=== PATIENT | female | born 1985 | race Caucasian/White ===

== ENCOUNTER 2018-11-10 19:26 | Emergency (ER) | payer BC, OTHER ==
[2018-11-10] MEDS ORDERED: KETOROLAC 30 MG/ML 1 ML VIAL IVP STA (19:50)
--- NOTE | 2018-11-10 19:53 | ED ---
Chest Pain HPI - General Chief Complaint: Chest Pain Stated Complaint: Chest Pain Time Seen by Provider: 11/10/18 19:37 Source: patient, family, RN notes reviewed, old records reviewed Mode of arrival: ambulatory Limitations: no limitations - History of Present Illness Initial Comments: This is a 33-year-old female with no prior history she is aware of heart disease or lung disease who presents with complaints of acid left-sided chest pain that began around 2 PM he states it's tight pressure-like 6/10 severity increases when she standing upright she did have 2 episodes of nausea vomiting and some shortness of breath with it. She does state that she has any abnormal EKG and did have a stress test this past week which apparently was unremarkable. She denies any cough fevers chills sweats or other symptoms she states she is a smoker but she is in the process of trying to quit right now. She has of a family history of a first cousin with heart disease at the age 33. No other modifying factors at this time she denies any heavy lifting and pushing and pulling or strenuous activity. MD Complaint: chest pain - Related Data Home Medications Medication Instructions Recorded Confirmed PARoxetine HCL [Paxil] 10 mg PO DAILY@1500 08/08/18 11/10/18 Lisinopril [Zestril] 20 mg PO DAILY@1500 11/10/18 11/10/18 amLODIPine BESYLATE [Norvasc] 10 mg PO DAILY@1500 11/10/18 11/10/18 Previous Rx's Medication Instructions Recorded Ibuprofen 800 mg PO Q6HR PRN #20 tablet 11/10/18 Allergies Allergy/AdvReac Type Severity Reaction Status Date / Time egg Allergy Anaphylaxis Verified 11/10/18 19:51 tetracycline Allergy Dyspnea/Kraig Verified 11/10/18 19:51 sea Review of Systems ROS Statement: Those systems with pertinent positive or pertinent negative responses have been documented in the HPI. ROS Other: All systems not noted in ROS Statement are negative. EKG Findings - EKG Results: EKG: interpreted by COLT, sinus rhythm (Sinus rhythm rate 76. Interval 182 QRS duration 132 QT since QTC 412/463 nonspecific interventricular block this is compared with an EKG dated 08/08/18 showing very similar configuration.) Past Medical History Past Medical History: Hypertension Additional Past Medical History / Comment(s): Irritable bowel syndrome, brain aneurysms History of Any Multi-Drug Resistant Organisms: MRSA Date of last positivie culture/infection: 2010 MDRO Source:: throat Past Surgical History: Adenoidectomy, Cholecystectomy, Orthopedic Surgery, Tonsillectomy, Tubal Ligation Additional Past Surgical History / Comment(s): eisinophilic granuloma surgery repair x 2, lung biopsy Past Anesthesia/Blood Transfusion Reactions: No Reported Reaction Past Psychological History: Anxiety, Depression Smoking Status: Current every day smoker Past Alcohol Use History: None Reported Past Drug Use History: None Reported - Past Family History Mother History Unknown: Yes Family Medical History: Eye Disorder, Hypertension Father History Unknown: Yes Family Medical History: Cancer, Hypertension General Exam - General Exam Comments Initial Comments: This is a well-developed well-nourished awake alert oriented 3 female Limitations: no limitations General appearance: alert, anxious Head exam: Present: atraumatic, normocephalic, normal inspection Eye exam: Present: normal appearance, PERRL, EOMI. Absent: scleral icterus, conjunctival injection, periorbital swelling ENT exam: Present: normal exam, mucous membranes moist Neck exam: Present: normal inspection, tenderness (Tenderness palpation along the left lateral neck musculature no midline tenderness no spinous process tenderness), full ROM, other (No stridor JVD or bruits). Absent: meningismus, lymphadenopathy Respiratory exam: Present: normal lung sounds bilaterally, chest wall tenderness (Reproducible tenderness palpation on the left costal sternal costochondral margin no step-off or crepitation.). Absent: respiratory distress , wheezes, rales, rhonchi, stridor Cardiovascular Exam: Present: regular rate, normal rhythm, normal heart sounds. Absent: systolic murmur, diastolic murmur, rubs, gallop, clicks GI/Abdominal exam: Present: soft, normal bowel sounds. Absent: distended, tenderness, guarding, rebound, rigid, bruit, pulsatile mass Extremities exam: Present: normal inspection, full ROM, normal capillary refill. Absent: tenderness, pedal edema, joint swelling, calf tenderness Back exam: Present: normal inspection Neurological exam: Present: alert, oriented X3, CN II-XII intact Psychiatric exam: Present: normal affect, normal mood Skin exam: Present: warm, dry, intact, normal color. Absent: rash Course Vital Signs 11/10/18 11/10/18 11/10/18 19:30 19:48 20:26 Temperature 98.5 F Pulse Rate 83 Pulse Rate [ 100 Environmental Tech ] Respiratory 18 16 18 Rate Blood Pressure 130/85 O2 Sat by Pulse 100 Oximetry Chest Pain MDM - MDM Patient is feeling improved after IV Toradol I did a long discussion with her regarding findings he presentation consistent with costochondritis/ musculoskeletal pain. Patient be discharged on appropriate medication she is a follow-up with Dr. richardson. She is to continue smoking cessation. We also did discuss her hemoglobin low she states she's always had a high hemoglobin. Disposition Clinical Impression: Costalchondritis, Chest wall syndrome Disposition: HOME SELF-CARE Condition: Good Instructions (If sedation given, give patient instructions): Costochondritis ( ED) Prescriptions: Ibuprofen 800 mg PO Q6HR PRN #20 tablet PRN Reason: Pain Is patient prescribed a controlled substance at d/c from ED?: No Referrals: Edward Givens MD [Primary Care Provider] - 1-2 days
[2018-11-10 20:09] LABS: Basophils # (A) 0.1 k/uL (0-0.2); Basophils % (A) 1 %; Eosinophils # (A) 0.2 k/uL (0-0.7); Eosinophils % (A) 3 %; HCT 53.3 % (34.0-46.0); HGB 17.5 gm/dL (11.4-16.0); Lymphocytes # (A) 2.1 k/uL (1.0-4.8); Lymphocytes % (A) 24 %; MCH 31.7 pg (25.0-35.0); MCHC 32.9 g/dL (31.0-37.0); MCV 96.3 fL (80.0-100.0); Mean Platelet Volume 7.3; Monocytes # (A) 0.4 k/uL (0-1.0); Monocytes % (A) 5 %; Neutrophils # (A) 5.7 k/uL (1.3-7.7); Neutrophils % (A) 66 %; Platelet Count 188 k/uL (150-450); RBC 5.53 m/uL (3.80-5.40); RDW 13.5 % (11.5-15.5); WBC 8.6 k/uL (3.8-10.6)
--- NOTE | 2018-11-10 20:13 | XR ---
EXAMINATION TYPE: XR chest 2V DATE OF EXAM: 11/10/2018 COMPARISON: NONE HISTORY: Chest pain TECHNIQUE: Frontal and lateral views of the chest are obtained. FINDINGS: There is no heart failure nor confluent pneumonic infiltrate. Costophrenic angles are johanny r. There are chest leads. Bony thorax is intact. IMPRESSION: Normal chest
[2018-11-10 20:24] LABS: D-Dimer 0.18 mg/L FEU (<0.60); INR 0.9 (<1.2); Partial Thromboplastin Time 25.2 sec (22.0-30.0)
[2018-11-10 20:28] VITALS: RESP 18
[2018-11-10 20:32] LABS: ALT 22 U/L (9-52); AST 16 U/L (14-36); Albumin 4.2 g/dL (3.5-5.0); Alkaline Phosphatase 64 U/L (38-126); Amylase 66 U/L (30-110); Anion Gap 9 mmol/L; Blood Urea Nitrogen 14 mg/dL (7-17); Calcium 9.4 mg/dL (8.4-10.2); Carbon Dioxide 23 mmol/L (22-30); Chloride 107 mmol/L (98-107); Glucose 86 mg/dL (74-99); Lipase 223 U/L (23-300); Sodium 139 mmol/L (137-145); Total Bilirubin 0.6 mg/dL (0.2-1.3); Total Protein 7.3 g/dL (6.3-8.2)
[2018-11-10 21:27] VITALS: BP 148/80; PULSE 84; TEMP 98
== END 2018-11-10 21:20 | disposition home or self-care (01) ==
LOC: EC 19:26
DX: M94.0 Chondrocostal junction syndrome [Tietze] (principal); I10 Essential (primary) hypertension; F41.9 Anxiety disorder, unspecified; F32.9 Major depressive disorder, single episode, unspecified; F17.200 Nicotine dependence, unspecified, uncomplicated; Z79.899 Other long term (current) drug therapy; Z88.1 Allergy status to other antibiotic agents; Z91.012 Allergy to eggs
CPT/HCPCS: 36415; 93005; 85379; 83880; 80053; 82150; 83690; 83735; 84484; 85025; 85610; 85730; 71046; 99285; 96374; J1885

== ENCOUNTER 2019-11-13 11:23 | Observation (INO) | payer BC, OTHER ==
[2019-11-13 12:40] LABS: Basophils # (A) 0.1 k/uL (0-0.2); Basophils % (A) 1 %; Eosinophils # (A) 0.2 k/uL (0-0.7); Eosinophils % (A) 2 %; HCT 54.3 % (34.0-46.0); HGB 17.7 gm/dL (11.4-16.0); Lymphocytes # (A) 1.4 k/uL (1.0-4.8); Lymphocytes % (A) 19 %; MCHC 32.6 g/dL (31.0-37.0); MCV 95.1 fL (80.0-100.0); Mean Platelet Volume 8.2; Monocytes # (A) 0.3 k/uL (0-1.0); Monocytes % (A) 4 %; Neutrophils # (A) 5.2 k/uL (1.3-7.7); Neutrophils % (A) 72 %; Platelet Count 176 k/uL (150-450); RBC 5.72 m/uL (3.80-5.40); RDW 13.3 % (11.5-15.5); WBC 7.2 k/uL (3.8-10.6)
--- NOTE | 2019-11-13 12:48 | XR ---
EXAMINATION TYPE: XR chest 2V DATE OF EXAM: 11/13/2019 COMPARISON: 11/10/2018 HISTORY: Chest pain TECHNIQUE: Frontal and lateral views of the chest are obtained. FINDINGS: There is no focal air space opacity, pleural effusion, or pneumothorax seen. Nodular dens ities in the upper lungs are stable from 11/10/2018 and also near the first ribs, possible arthropathy. Cardiac silhouette size is within normal limits. The osseous structures are intact. Cholecystectom y clips are seen. IMPRESSION: No acute cardiopulmonary process. Stable upper lung nodular densities that are near the first ribs and could simply relate to arthropathy or costochondral calcifications. Nonemergent CT tho rax could ensure no lung nodules.
--- NOTE | 2019-11-13 12:50 | CT ---
EXAMINATION TYPE: CT brain wo con DATE OF EXAM: 11/13/2019 COMPARISON: 07/31/2018 HISTORY: Left-sided headache, eye pain, history of aneurysm CT DLP: 1099.4 mGycm. Automated Exposure Control for Dose Reduction was Utilized. TECHNIQUE: CT scan of the head is performed without contrast. FINDINGS: There is postsurgical change involving the left calvarium. There is no evidence of acute intracranial hemorrhage or mass effect. Ventricular size is stable. There is a linear area of hyperde nsity in the left frontal lobe which could represent a venous angioma. This is stable from prior exam . 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 CTA recom mended. Due to positioning assessment the cerebellar tonsils limited. Appears to be low-lying in posi tion. Report discussed with the ER clinician. IMPRESSION: 1. Postoperative changes. There appears to be findings suspicious for a 3 mm basilar tip artery aneur ysm. Stat CTA [place] recommended. 2. Findings also suspicious for venous angioma left frontal lobe. 3. Low-lying cerebellar tonsils
[2019-11-13 12:53] LABS: Partial Thromboplastin Time 25.6 sec (22.0-30.0); Prothrombin Time 10.5 sec (9.0-12.0)
[2019-11-13 12:54] LABS: ALT 6 U/L (4-34); AST 16 U/L (14-36); African American GFR (CKD) >90 (>60 ml/min/1.73 sqM); Albumin 4.2 g/dL (3.5-5.0); Alkaline Phosphatase 81 U/L (38-126); Anion Gap 9 mmol/L; Blood Urea Nitrogen 11 mg/dL (7-17); Calcium 9.2 mg/dL (8.4-10.2); Carbon Dioxide 25 mmol/L (22-30); Chloride 106 mmol/L (98-107); Glucose 87 mg/dL (74-99); Non-African American GFR(CKD) >90 (>60 ml/min/1.73 sqM); Sodium 140 mmol/L (137-145); Total Bilirubin 0.6 mg/dL (0.2-1.3); Total Protein 7.2 g/dL (6.3-8.2)
--- NOTE | 2019-11-13 12:54 | ED ---
General Adult HPI - General Chief complaint: Chest Pain Stated complaint: chest tightness/facial numbness Time Seen by Provider: 11/13/19 12:06 Source: patient, RN notes reviewed Mode of arrival: wheelchair Limitations: no limitations - History of Present Illness Initial comments: This a 34 year female presents emergency Department chief complaint of headache, chest discomfort. Patient states she did not feel well at work last night states that she had some skipping of her heart or palpitations. Patient states then she developed left eye issues that she describes as flashing lights and then states that he went completely black for several minutes. She states her vision still feels weak but she does have active vision out of her left eye. She states that she has some issues with this after her aneurysm procedure done at [facility]. She states that she follow-up with ophthalmology at that time and she was told she had some narrowing of her vessel. Patient does not take Plavix as she used to after her aneurysm procedure. Patient denies any focal weakness of her upper or lower extremities. She does complain of some facial numbness on the left side. She states that she has a current headache and left foot is not the worse headache of her life. - Related Data Home Medications Medication Instructions Recorded Confirmed PARoxetine HCL [Paxil] 10 mg PO DAILY@1500 08/08/18 11/10/18 Lisinopril [Zestril] 20 mg PO DAILY@1500 11/10/18 11/10/18 amLODIPine BESYLATE [Norvasc] 10 mg PO DAILY@1500 11/10/18 11/10/18 Previous Rx's Medication Instructions Recorded Ibuprofen 800 mg PO Q6HR PRN #20 tablet 11/10/18 Allergies Allergy/AdvReac Type Severity Reaction Status Date / Time egg Allergy Anaphylaxis Verified 11/13/19 11:31 tetracycline Allergy Dyspnea/Kraig Verified 11/13/19 11:31 sea Review of Systems ROS Statement: Those systems with pertinent positive or pertinent negative responses have been documented in the HPI. ROS Other: All systems not noted in ROS Statement are negative. Past Medical History Past Medical History: Hypertension Additional Past Medical History / Comment(s): Irritable bowel syndrome, brain aneurysms History of Any Multi-Drug Resistant Organisms: MRSA Date of last positivie culture/infection: 2010 MDRO Source:: throat Past Surgical History: Adenoidectomy, Cholecystectomy, Orthopedic Surgery, Tonsillectomy, Tubal Ligation Additional Past Surgical History / Comment(s): eisinophilic granuloma surgery repair x 2, lung biopsy Past Anesthesia/Blood Transfusion Reactions: No Reported Reaction Past Psychological History: Anxiety, Depression Smoking Status: Current every day smoker Past Alcohol Use History: None Reported Past Drug Use History: None Reported - Past Family History Mother History Unknown: Yes Family Medical History: Eye Disorder, Hypertension Father History Unknown: Yes Family Medical History: Cancer, Hypertension General Exam Limitations: no limitations General appearance: alert, in no apparent distress Head exam: Present: atraumatic, normocephalic, normal inspection Eye exam: Present: normal appearance, PERRL, EOMI. Absent: scleral icterus, conjunctival injection, periorbital swelling ENT exam: Present: normal exam, normal oropharynx, mucous membranes moist Neck exam: Present: normal inspection, full ROM. Absent: tenderness, meningismus, lymphadenopathy Respiratory exam: Present: normal lung sounds bilaterally. Absent: respiratory distress, wheezes, rales, rhonchi, stridor Cardiovascular Exam: Present: regular rate, normal rhythm, normal heart sounds. Absent: systolic murmur, diastolic murmur, rubs, gallop, clicks GI/Abdominal exam: Present: soft, normal bowel sounds. Absent: distended, tenderness, guarding, rebound, rigid Neurological exam: Present: alert, oriented X3, CN II-XII intact, reflexes normal. Absent: motor sensory deficit Skin exam: Present: warm, dry, intact, normal color. Absent: rash Course Vital Signs 11/13/19 11/13/19 11/13/19 11:27 11:50 12:00 Temperature 97.9 F Pulse Rate 66 78 79 Respiratory 16 20 21 Rate Blood Pressure 138/92 130/79 O2 Sat by Pulse 98 99 98 Oximetry 11/13/19 11/13/19 11/13/19 12:20 12:30 13:40 Temperature Pulse Rate 79 79 Respiratory 20 17 Rate Blood Pressure 129/86 129/86 123/77 O2 Sat by Pulse 98 96 Oximetry EKG Findings - EKG Comments: EKG Findings:: EKG formal 12:20 normal sinus rhythm rate of 80 [place] 174 QRS 2018 QTC is QTC 44/465 - EKG Results: EKG: interpreted by COLT Medical Decision Making - Medical Decision Making 34-year-old female presented for chest pain, headache and episode of blurred vision. Her symptoms of her vision have resolved this time. I did have a CT of her brain which showed possibility of aneurysm CTA was obtained radiologist read as negative at this time. Patient continues to have chest discomfort there is some family history and she states she has risk factors. I did have a dis cussion with her stating that she need to be transferred to her neurosurgeon at [facility] in [place]. Patient states that she is not worried about her headache, facial symptoms or blurred vision. She states she's had these symptoms in the past. She states she has an appointment with her neurologist on the . Patient refuses to be transferred to [facility] for neuro evaluation. I do have concerns of cardiac disease. I did recommend the patient should have observation at [facility] also for chest pain. Patient again declines. Case discussed with Dr. Rose in which the patient may be admitted for cardiology evaluation knowing that we do not have current neuro evaluation. - Lab Data Result diagrams: 11/13/19 12:00 11/13/19 12:00 Lab Results 11/13/19 11/13/19 11/13/19 Range/Units 12:00 12:00 12:00 WBC 7.2 (3.8-10.6) k/uL RBC 5.72 H (3.80-5.40) m/uL Hgb 17.7 H (11.4-16.0) gm/dL Hct 54.3 H (34.0-46.0) % MCV 95.1 (80.0-100.0) fL MCH 31.0 (25.0-35.0) pg MCHC 32.6 (31.0-37.0) g/dL RDW 13.3 (11.5-15.5) % Plt Count 176 (150-450) k/uL Neutrophils % 72 % Lymphocytes % 19 % Monocytes % 4 % Eosinophils % 2 % Basophils % 1 % Neutrophils # 5.2 (1.3-7.7) k/uL Lymphocytes # 1.4 (1.0-4.8) k/uL Monocytes # 0.3 (0-1.0) k/uL Eosinophils # 0.2 (0-0.7) k/uL Basophils # 0.1 (0-0.2) k/uL PT 10.5 (9.0-12.0) sec INR 1.0 (<1.2) APTT 25.6 (22.0-30.0) sec Sodium 140 (137-145) mmol/L Potassium 4.0 (3.5-5.1) mmol/L Chloride 106 (98-107) mmol/L Carbon Dioxide 25 (22-30) mmol/L Anion Gap 9 mmol/L BUN 11 (7-17) mg/dL Creatinine 0.68 (0.52-1.04) mg/dL Est GFR (CKD-EPI)AfAm >90 (>60 ml/min/1.73 sqM) Est GFR (CKD-EPI)NonAf >90 (>60 ml/min/1.73 sqM) Glucose 87 (74-99) mg/dL Calcium 9.2 (8.4-10.2) mg/dL Magnesium 2.0 (1.6-2.3) mg/dL Total Bilirubin 0.6 (0.2-1.3) mg/dL AST 16 (14-36) U/L ALT 6 (4-34) U/L Alkaline Phosphatase 81 (38-126) U/L Troponin I (0.000-0.034) ng/mL NT-Pro-B Natriuret Pep pg/mL Total Protein 7.2 (6.3-8.2) g/dL Albumin 4.2 (3.5-5.0) g/dL 11/13/19 11/13/19 Range/Units 12:00 12:00 WBC (3.8-10.6) k/uL RBC (3.80-5.40) m/uL Hgb (11.4-16.0) gm/dL Hct (34.0-46.0) % MCV (80.0-100.0) fL MCH (25.0-35.0) pg MCHC (31.0-37.0) g/dL RDW (11.5-15.5) % Plt Count (150-450) k/uL Neutrophils % % Lymphocytes % % Monocytes % % Eosinophils % % Basophils % % Neutrophils # (1.3-7.7) k/uL Lymphocytes # (1.0-4.8) k/uL Monocytes # (0-1.0) k/uL Eosinophils # (0-0.7) k/uL Basophils # (0-0.2) k/uL PT (9.0-12.0) sec INR (<1.2) APTT (22.0-30.0) sec Sodium (137-145) mmol/L Potassium (3.5-5.1) mmol/L Chloride (98-107) mmol/L Carbon Dioxide (22-30) mmol/L Anion Gap mmol/L BUN (7-17) mg/dL Creatinine (0.52-1.04) mg/dL Est GFR (CKD-EPI)AfAm (>60 ml/min/1.73 sqM) Est GFR (CKD-EPI)NonAf (>60 ml/min/1.73 sqM) Glucose (74-99) mg/dL Calcium (8.4-10.2) mg/dL Magnesium (1.6-2.3) mg/dL Total Bilirubin (0.2-1.3) mg/dL AST (14-36) U/L ALT (4-34) U/L Alkaline Phosphatase (38-126) U/L Troponin I <0.012 (0.000-0.034) ng/mL NT-Pro-B Natriuret Pep 56 pg/mL Total Protein (6.3-8.2) g/dL Albumin (3.5-5.0) g/dL Disposition Clinical Impression: Left facial numbness, Ocular pain, left eye, Chest pain Disposition[facility] Condition: Fair Referrals: Edward Givens MD [Primary Care Provider] - 1-2 days
--- NOTE | 2019-11-13 13:49 | CT ---
EXAMINATION TYPE: CT angio head DATE OF EXAM: 11/13/2019 1:24 PM COMPARISON: CT brain earlier today. MRA [place] August 09, 2018 HISTORY: Prior history of aneurysm. Abnormal CT today. CT DLP: 970.2 mGycm Automated exposure control for dose reduction was used. TECHNIQUE: Performed with IV Contrast, patient injected with 100 mL of Isovue 370. . FINDINGS: Larger dominant right vertebral artery redemonstrated. Vertebral arteries are patent to the basilar j unction. No significant focal stenosis or aneurysmal change is present. There is tortuous course to t he left T1 segment mimicking basilar tip aneurysm and high originating superior cerebellar arteries w hen correlating CTA with prior MRI causing some prominence of the basilar tip. Anterior circulation shows patent anterior communicating artery. There is no significant focal stenos is or aneurysmal change seen. IMPRESSION: No aneurysmal change at the level [place] with particular attention to the basil ar tip. No significant change from MRA August 09, 2018.
[2019-11-13] MEDS ORDERED: ASPIRIN 81 MG PO STA (14:37)
[2019-11-13] MEDS ORDERED: HEPARIN SODIUM,PORCINE 5,000 UNIT/ML 1 ML VIAL IV PRN (14:37)
[2019-11-13] MEDS ORDERED: HEPARIN SODIUM,PORCINE 5,000 UNIT/ML 1 ML VIAL IV ONE (14:37)
[2019-11-13] MEDS ORDERED: NITROGLYCERIN SL TABS 0.4 MG TAB SUBLINGUAL PRN (14:37)
[2019-11-13] MEDS ORDERED: HEPARIN SOD,PORK IN 0.45% NACL 25,000 UNIT in 0.45% NACL 1 250ML.BAG IV SCH (14:45)
[2019-11-13] MEDS ORDERED: LISINOPRIL 20 MG TAB PO SCH (15:00)
[2019-11-13] MEDS ORDERED: amLODIPine 10 MG TAB PO SCH (15:00)
[2019-11-13] MEDS ORDERED: PARoxetine 10 MG TAB PO SCH (15:00)
[2019-11-13] MEDS: NITROGLYCERIN OINT 1 INCH/GM PACKET TOPICAL SCH ×2 (16:52→23:01)
[2019-11-13] MEDS: NICOTINE 14MG/24HR PATCH TRANSDERM SCH (16:53)
[2019-11-13 21:18] VITALS: RESP 18
--- NOTE | 2019-11-13 22:12 | P.HPIM ---
History of Present Illness H&P Date: 11/13/19 Chief Complaint: Chest tightness History of presenting complaint: His is a pleasant [address] Givens. 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 Also Found a Venous Angioma of the Left Frontal Lobe. Patient Was Transferred to [facility]. Subsequently Abdominal the [facility] She Had a Stent Placed in the Brain. Patient Cannot Give Me M ore Details. Patient Now Presents Lasted of Chest Tightness across the Chest. Also Fluttering Sensation. Worse with Activity Better with Rest. No Cough No Fever or Chills. No Radiation to Neck or Arm. Admitted for the Same. Patient Was Told in the ER That No Neurology Service Available. Patient Understands the Same and Wants to Get Admitted Here. Did Not Wish to Be Transferred to Another Hospital. Patient Also Described Flashing Lights and Completely Blind for Several Minutes. And Vision Improved to His Left Eye. Some Left-Sided Headache. 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 EYES: Pupils equal. Conjunctiva normal. HEENT: External appearance of nose and ears normal, oral cavity grossly normal. NECK: JVD not raised; masses not palpable. HEART: First and second heart sounds are normal; no edema. LUNGS:[ Respiratory rate normal; diminished breath sounds mild wheezing. ABDOMEN: Soft, nontender, liver spleen not palpable, no masses palpable. PSYCH: Alert and oriented x3; mood and affect anxiousl. NEUROLOGICAL: Cranial nerves grossly intact; no facial asymmetry, power and sensation grossly intact. LYMPHATICS: No lymph nodes palpable in the axilla and neck INVESTIGATIONS, reviewed in the clinical context: White count 7.2 hemoglobin 7.7 potassium 4 creatinine 0.68 Troponin I 2 negative Computed tomography scan of the brain-finding suspicious for a 3 mm basilar tip artery aneurysms and suspicion for venous angioma left frontal lobe Carotid Doppler-unremarkable CT angiogram of the head-acute none EKG tracing personally reviewed by me-normal sinus rhythm poor R-wave progression Chest x-ray film personally reviewed by me-some pulmonary artery prominence Assessment: -Chest tightness-rule out cardiac cause -Temporary loss of vision in the left eye, with vision recovered with some headache. Patient does not wish to be transferred to [facility] and was told by the ER physician and patient does understand is no neurology service available here. 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 Serial cardiac enzymes and place. Home medications resumed. Nicotine patch to be given. Discussed with patient. Patient is offered transfer to [facility] for ophthalmic symptoms Past Medical History Past Medical History: Hypertension Additional Past Medical History / Comment(s): Eisinophilic granuloma/brain with surgery, 2018 aneurysm distal L internal caratid artery and a large L aneurysm opthalmic artery with surgery, chronic headaches, L eye has narrowed vessel, past L eye twitching/pain, L side facial numbness, leaky heart valve, hiatal hernia, IBS. History of Any Multi-Drug Resistant Organisms: MRSA Date of last positivie culture/infection: 2010 MDRO Source:: throat Past Surgical History: Adenoidectomy, Cholecystectomy, Orthopedic Surgery, Tonsillectomy, Tubal Ligation Additional Past Surgical History / Comment(s): Benign eisinophilic granuloma skull surgery repair then I&D of this area, 2018-2 brain aneurysms with surgery at [facility], R lung biopsy d/t "spots"-found to be fungal, L knee arthroscopy. Past Anesthesia/Blood Transfusion Reactions: No Reported Reaction Past Psychological History: Anxiety, Depression Additional Psychological History / Comment(s): Pt resides with her significant other and 4 boys-one of which has autism. Pt works facility rehab director. She is independent. Smoking Status: Former smoker Past Alcohol Use History: None Reported Additional Past Alcohol Use History / Comment(s): Pt started smoking in 1999 and quit in 2017. Past Drug Use History: None Reported - Past Family History Mother History Unknown: Yes Family Medical History: Eye Disorder, Hypertension Father History Unknown: Yes Family Medical History: Cancer, Hypertension, Renal Disease Additional Family Medical History / Comment(s): Father had cancerous brain eisinophilic granuloma. He from renal failure d/t medications at the age of 50 yrs. Medications and Allergies Home Medications Medication Instructions Recorded Confirmed Type PARoxetine HCL [Paxil] 10 mg PO DAILY@169908/08/18 11/13/19 History Lisinopril [Zestril] 20 mg PO DAILY@169911/10/18 11/13/19 History amLODIPine BESYLATE [Norvasc] 10 mg PO DAILY@169911/10/18 11/13/19 History Aspirin 325 mg PO DAILY@169911/13/19 11/13/19 History Allergies Allergy/AdvReac Type Severity Reaction Status Date / Time egg Allergy Anaphylaxis Verified 11/13/19 14:40 sumatriptan [From Imitrex] Allergy Unknown Verified 11/13/19 14:40 tetracycline Allergy Dyspnea/Kraig Verified 11/13/19 14:40 sea Physical Exam Vitals: Vital Signs Temp Pulse Pulse Resp BP BP Pulse Ox 11/13/19 20:00 97.8 F 86 18 118/65 95 11/13/19 15:47 98.4 F 76 16 129/86 97 11/13/19 13:40 79 17 123/77 96 11/13/19 12:30 129/86 11/13/19 12:20 79 20 129/86 98 11/13/19 12:00 79 21 130/79 98 11/13/19 11:50 78 20 99 11/13/19 11:27 97.9 F 66 16 138/92 98 Intake and Output 11/13/19 11/13/19 11/13/19 06:59 14:59 22:59 Other: Voiding Method Toilet Weight 90.718 kg 90.718 kg Results CBC & Chem 7: 11/13/19 12:00 11/13/19 12:00 Labs: Abnormal Lab Results - Last 24 Hours (Table) 11/13/19 Range/Units 12:00 RBC 5.72 H (3.80-5.40) m/uL Hgb 17.7 H (11.4-16.0) gm/dL Hct 54.3 H (34.0-46.0) % Thrombosis Risk Factor Assmnt - Choose All That Apply Any of the Below Risk Factors Present?: Yes Each Factor Represents 1 point: Obesity (BMI >25) Other Risk Factors: No Other congenital or acquired thrombophilia - If yes, enter type in comment: No Thrombosis Risk Factor Assessment Total Risk Factor Score: 1 Thrombosis Risk Factor Assessment Level: Low Risk
[2019-11-14 03:26] LABS: Mean Platelet Volume 8.4; Platelet Count 185 k/uL (150-450)
[2019-11-14] MEDS: NITROGLYCERIN OINT 1 INCH/GM PACKET TOPICAL SCH ×2 (03:41→12:42)
[2019-11-14 03:43] LABS: Cholesterol 142 mg/dL (<200); HDL Cholesterol 44 mg/dL (40-60); LDL Cholesterol,Calculated 83 mg/dL (0-99); Triglycerides 77 mg/dL (<150)
[2019-11-14] MEDS: NICOTINE 14MG/24HR PATCH TRANSDERM SCH ×2 (08:22→12:42)
[2019-11-14] MEDS ORDERED: ASPIRIN 81 MG PO SCH (09:00)
[2019-11-14] MEDS ORDERED: ASPIRIN 325 MG TAB PO SCH (09:00)
--- NOTE | 2019-11-14 10:32 | P.CRDCN ---
History of Present Illness History of present illness: HISTORY OF PRESENTING ILLNESS This is a pleasant 34-year-old female past medical history significant for hypertension, eosinophilic granuloma s/p craniotomy at the age of 16, aneur ysm behind the left eye status post repair with stent placement in the brain exact details unavailable, chronic nicotine dependence and morbid obesity. 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 We have been asked to see in consultation for chest pain. She states for the previous 24 hours she has been experiencing a tightness in the left precordial region at times radiates into the left neck, left shoulder and is associated with shortness of breath and palpitations. Her pain is exacerbated by deep inspiration. It is not reproducible on palpation. She also has been experiencing some vision loss and changes in the left side. This has subsided however her chest pain has been intermittently ongoing. DIAGNOSTICS EKG reveals sinus mechanism with poor R-wave progression. Chest xray to for an acute cardiopulmonary process with a stable upper lung nodule density. CT brain reveals postoperative changes with a suspicion for a 3 mm basal tip artery aneurysm, venous angioma of the left frontal lobe and a low lying cerebellar tonsils. CTA of the head reveals no aneurysmal change at the level of the [place] with particular attention to the basilar tip no change from MRA from July 2018. Laboratory reviewed, cardiac enzymes negative 3, LDL 83, HDL 44, WBC 7.2, hemoglobin 17.7, platelets 195, sodium 140, potassium 4.0, creatinine 0.68 and anti-proBNP 56. Current cardiac medications include aspirin 325 mg daily per neurology, lisinopril 20 mg daily and amlodipine 10 mg daily. REVIEW OF SYSTEMS At the time of my exam: CONSTITUTIONAL: Denies fever or chills. CARDIOVASCULAR: Denies chest pain, shortness of breath, orthopnea, PND or palpitations. RESPIRATORY: Denies cough. GASTROINTESTINAL: Denies abdominal pain, diarrhea, constipation, nausea or vomiting. MUSCULOSKELETAL: Denies myalgias. NEUROLOGIC: Denies numbness, tingling or weakness. ENDOCRINE: Denies fatigue, weight change, polydipsia or polyurina. GENITOURINARY: Denies burning, hematuria or urgency with micturation. HEMATOLOGIC: Denies history of anemia or bleeding. PHYSICAL EXAMINATION Blood pressure 111/75 heart rate 75 afebrile and maintaining oxygen saturation on room air. CONSTITUTIONAL: No apparent distress. HEENT: Head is normocephalic. Pupils are equal, round. Sclerae anicteric. Mucous membranes of the mouth are moist. No JVD. No carotid bruit. CHEST EXAMINATION: Lungs are clear to auscultation. No chest wall tenderness is noted on palpation or with deep breathing. HEART EXAMINATION: Regular rate and rhythm. S1, S2 heard. No murmurs, gallops or rub. ABDOMEN: Soft, nontender. Positive bowel sounds. EXTREMITIES: 2+ peripheral pulses, no lower extremity edema and no calf tenderness. NEUROLOGIC EXAMINATION: Patient is awake, alert and oriented x3. ASSESSMENT Chest pain, atypical. An acute coronary event has been ruled out. Vision changes Hypertension Polycythemia Chronic nicotine dependence History of aneurysm behind the left eye status post surgical repair Morbid obesity, BMI 43 PLAN An acute coronary event has been ruled out. Discontinue heparin. Check a d-dimer. Perform stress echocardiogram to assess for stress induced ischemia. Consider neurology evaluation for vision loss, management per primary care team. Thank you kindly for this consultation. Nurse Practitioner note has been reviewed, I agree with a documented findings and plan of care. Patient was seen and examined. 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 History of Any Multi-Drug Resistant Organisms: MRSA Date of last positivie culture/infection: 2010 MDRO Source:: throat Past Surgical History: Adenoidectomy, Cholecystectomy, Orthopedic Surgery, Tonsillectomy, Tubal Ligation Additional Past Surgical History / Comment(s): Benign eisinophilic granuloma skull surgery repair then I&D of this area, 2018-2 brain aneurysms with surgery at [facility], lung biopsy d/t "spots"-found to be fungal, L knee arthroscopy. Past Anesthesia/Blood Transfusion Reactions: No Reported Reaction Past Psychological History: Anxiety, Depression Additional Psychological History / Comment(s): Pt resides with her significant other and 4 boys-one of which has autism. Pt works property and equipment clerk. She is independent. Smoking Status: Former smoker Past Alcohol Use History: None Reported Additional Past Alcohol Use History / Comment(s): Pt started smoking in 1999 and quit in 2018. Past Drug Use History: None Reported - Past Family History Mother History Unknown: Yes Family Medical History: Eye Disorder, Hypertension Father History Unknown: Yes Family Medical History: Cancer, Hypertension, Renal Disease Additional Family Medical History / Comment(s): Father had cancerous brain eisinophilic granuloma. He from renal failure d/t medications at the age of 50 yrs. Medications and Allergies Home Medications Medication Instructions Recorded Confirmed Type PARoxetine HCL [Paxil] 10 mg PO DAILY@0 08/08/18 11/13/19 History Lisinopril [Zestril] 20 mg PO DAILY@169911/10/18 11/13/19 History amLODIPine BESYLATE [Norvasc] 10 mg PO DAILY@169911/10/18 11/13/19 History Aspirin 325 mg PO DAILY@169911/13/19 11/13/19 History Allergies Allergy/AdvReac Type Severity Reaction Status Date / Time egg Allergy Anaphylaxis Verified 11/13/19 14:40 sumatriptan [From Imitrex] Allergy Unknown Verified 11/13/19 14:40 tetracycline Allergy Dyspnea/Kraig Verified 11/13/19 14:40 sea Physical Exam Vitals: Vital Signs Temp Pulse Pulse Pulse Resp BP BP 11/14/19 07:40 98.2 F 75 18 11/14/19 03:40 73 18 11/14/19 03:38 98.3 F 73 18 131/78 11/13/19 23:36 84 18 11/13/19 23:32 98.3 F 84 18 116/71 11/13/19 20:00 97.8 F 86 18 118/65 11/13/19 15:47 98.4 F 76 16 129/86 11/13/19 13:40 79 17 123/77 11/13/19 12:30 129/86 11/13/19 12:20 79 20 129/86 11/13/19 12:00 79 21 130/79 11/13/19 11:50 78 20 11/13/19 11:27 97.9 F 66 16 138/92 BP Pulse Ox 11/14/19 07:40 111/75 95 11/14/19 03:40 11/14/19 03:38 97 11/13/19 23:36 11/13/19 23:32 96 11/13/19 20:00 95 11/13/19 15:47 97 11/13/19 13:40 96 11/13/19 12:30 11/13/19 12:20 98 11/13/19 12:00 98 11/13/19 11:50 99 11/13/19 11:27 98 Intake and Output 11/13/19 11/14/19 11/14/19 22:59 06:59 14:59 Intake Total 79.333 Balance 79.333 Intake: Intake, IV Titration 79.333 Amount Heparin Sod,Pork in 0.45% 79.333 NaCl 25,000 unit In 0.45 % NaCl 1 250ml.bag @ 11 UNITS/KG/HR 9.979 mls/hr IV .Q24H [facility] Rx#: [id number] Other: Voiding Method Toilet Toilet # Voids 1 1 Weight 90.718 kg 100.6 kg Results 11/14/19 02:56 11/13/19 12:00 Cardiac Enzymes 11/13/19 11/13/19 11/13/19 Range/Units 12:00 12:00 18:09 AST 16 (14-36) U/L Troponin I <0.012 <0.012 (0.000-0.034) ng/mL 11/14/19 Range/Units 00:59 AST (14-36) U/L Troponin I <0.012 (0.000-0.034) ng/mL Coagulation 11/13/19 11/13/19 11/14/19 Range/Units 12:00 21:13 02:56 PT 10.5 (9.0-12.0) sec APTT 25.6 27.8 37.8 H (22.0-30.0) sec 11/14/19 Range/Units 07:10 PT (9.0-12.0) sec APTT 33.6 H (22.0-30.0) sec Lipids 11/14/19 Range/Units 02:56 Triglycerides 77 (<150) mg/dL Cholesterol 142 (<200) mg/dL HDL Cholesterol 44 (40-60) mg/dL CBC 11/13/19 11/14/19 Range/Units 12:00 02:56 WBC 7.2 (3.8-10.6) k/uL RBC 5.72 H (3.80-5.40) m/uL Hgb 17.7 H (11.4-16.0) gm/dL Hct 54.3 H (34.0-46.0) % Plt Count 176 185 (150-450) k/uL Comprehensive Metabolic Panel 11/13/19 Range/Units 12:00 Sodium 140 (137-145) mmol/L Potassium 4.0 (3.5-5.1) mmol/L Chloride 106 (98-107) mmol/L Carbon Dioxide 25 (22-30) mmol/L BUN 11 (7-17) mg/dL Creatinine 0.68 (0.52-1.04) mg/dL Glucose 87 (74-99) mg/dL Calcium 9.2 (8.4-10.2) mg/dL AST 16 (14-36) U/L ALT 6 (4-34) U/L Alkaline Phosphatase 81 (38-126) U/L Total Protein 7.2 (6.3-8.2) g/dL Albumin 4.2 (3.5-5.0) g/dL Current Medications Generic Name Dose Route Start Last Admin Trade Name Freq PRN Reason Stop Dose Admin Amlodipine Besylate 10 mg 11/13/19 15:00 11/13/19 16:52 Norvasc PO 10 mg DAILY@1500 MONIK Administration Aspirin 325 mg 11/14/19 09:00 Aspirin PO DAILY [facility] Heparin Sodium (Porcine) 0 unit 11/13/19 14:37 11/13/19 23:02 Heparin IV 4,000 unit Q6HR PRN Administration Low PTT Protocol Heparin Sodium/Sodium Chloride 250 mls @ 9.979 mls/hr 11/13/19 14:45 11/13/19 23:02 25,000 unit/ Sodium Chloride IV 14 units/kg/hr .Q24H MONIK 12.701 mls/hr Titration Protocol 11 UNITS/KG/HR Lisinopril 20 mg 11/13/19 15:00 11/13/19 16:52 Zestril PO 20 mg DAILY@1500 [facility] Administration Nicotine 1 patch 11/13/19 16:15 11/13/19 16:53 Habitrol 14mg/24hr Patch TRANSDERM 1 patch DAILY [facility] Administration Nitroglycerin 0.4 mg 11/13/19 14:37 Nitrostat SUBLINGUAL Q5M PRN Chest Pain Nitroglycerin 1 inch 11/13/19 18:00 11/14/19 03:41 Nitro-Bid Oint TOPICAL Not Given Q6HR [facility] Paroxetine HCl 10 mg 11/13/19 15:00 11/13/19 16:53 Paxil PO 10 mg DAILY@1500 [facility] Administration Intake and Output 11/13/19 11/14/19 11/14/19 22:59 06:59 14:59 Intake Total 79.333 Balance 79.333 Intake: Intake, IV Titration 79.333 Amount Heparin Sod,Pork in 0.45% 79.333 NaCl 25,000 unit In 0.45 % NaCl 1 250ml.bag @ 11 UNITS/KG/HR 9.979 mls/hr IV .Q24H [facility] Rx#: [id number] Other: Voiding Method Toilet Toilet # Voids 1 1 Weight 90.718 kg 100.6 kg 11/14/19 02:56 11/13/19 12:00
[2019-11-14 11:42] VITALS: BMI 43.3
[2019-11-14 12:15] VITALS: BP 119/82; PULSE 96
--- NOTE | 2019-11-14 12:59 | ECHOS ---
STRESS ECHOCARDIOGRAM INDICATIONS: Chest pain. BASELINE HEART RATE: 74 BASELINE BLOOD PRESSURE: 146/92 MAXIMUM HEART RATE: 150. MAXIMUM BLOOD PRESSURE: 210/120 85% MPHR: 156 100% MPHR: 184 METS: 9.0 MAXIMUM STAGE REACHED: 3 TOTAL EXERCISE TIME: 7:23 CLINICAL INFORMATION: Baseline EKG shows sinus rhythm, normal axis, normal intervals with poor R-wave progression. Patient exercised on Kanu protocol for a total of 7.5 minute achieving 9 METS, 88% of predicted maximal heart rate without chest pain or diagnostic ST-segment depression. Baseline echo shows normal left ventricular size, wall motion and systolic function. Postexercise, there is normal hyperdynamic response of all myocardium noted. CONCLUSION: 1. Average exercise tolerance. 2. Negative stress test by EKG criteria. 3. Negative stress echo. MMODL / IJN: [id number] /
[2019-11-14 13:16] VITALS: TEMP 98.1
--- NOTE | 2019-11-16 21:31 | P.DS ---
Providers Date of admission: 11/13/19 15:16 Expected date of discharge: 11/14/19 Attending physician: Yaw Woods Consults: 11/13/19 14:37 Consult Physician Urgent Consulting Provider: Lj Drummond Consult Reason/Comments: chest pain Do you want consulting provider notified?: Yes Primary care physician: Edward Givens [facility] Course: Chief Complaint: Chest tightness History of presenting complaint: pleasant [address] Givens. 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 Also Found a Venous Angioma of the Left Frontal Lobe. Patient Was Transferred to [facility]. Subsequently She Had a Stent Placed in the Brain. Patient Cannot Give Me More Details. Patient Now Presents Chest Tightness across the Chest. Also Fluttering Sensation. Worse with Activity Better with Rest. No Cough No Fever or Chills. No Radiation to Neck or Arm. Admitted for the Same. Also having some pain behind his left eye and headache. Patient Was Told in the ER That No Neurology Service Available. Patient Understands the Same and Wants to Get Admitted Here. Did Not Wish to Be Transferred to Another Hospital. Patient Also Described Flashing Lights and Completely Blind for Several Minutes. And Vision Improved to His Left Eye. Some Left-Sided Headache. Also Present Seen by cardiac surgery. Stress echocardiogram was reported negative but then. Patient of the symptoms have resolved. Patient again reminded the patient to follow-up with neurology. Consultation: Dr. Jeanette Jameson from cardiology Physical examination: VITAL SIGNS: 98.2, 75, 18, 1110 75, 95% on room air GENERAL: Laying in bed, comfortable EYES: Pupils equal. Conjunctiva normal. HEENT: External appearance of nose and ears normal, oral cavity grossly normal. NECK: JVD not raised; masses not palpable. HEART: First and second heart sounds are normal; no edema. LUNGS:[ Respiratory rate normal; diminished breath sounds mild wheezing. ABDOMEN: Soft, nontender, liver spleen not palpable, no masses palpable. PSYCH: Alert and oriented x3; mood and affect anxiousl. INVESTIGATIONS, reviewed in the clinical context: White count 7.2 hemoglobin 7.7 potassium 4 creatinine 0.68 LDL 83 Troponin I 2 negative Computed tomography scan of the brain-finding suspicious for a 3 mm basilar tip artery aneurysms and suspicion for venous angioma left frontal lobe Carotid Doppler-unremarkable CT angiogram of the head-acute none EKG tracing personally reviewed by me-normal sinus rhythm poor R-wave progression Chest x-ray film personally reviewed by me-some pulmonary artery prominence Stress echocardiogram-reported negative by cardiology Assessment: -Atypical chest wall pain. Negative stress test -Temporary loss of vision in the left eye, with vision recovered with some headache. Patient does not wish to be transferred to [place] and was told by the ER physician and patient does understand is no neurology service available here. 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 Disposition: Home Patient Condition at Discharge: Stable Plan - Discharge Summary Discharge Rx Participant: No New Discharge Prescriptions: No Action PARoxetine HCL [Paxil] 10 mg PO DAILY@1700 amLODIPine BESYLATE [Norvasc] 10 mg PO DAILY@1700 Lisinopril [Zestril] 20 mg PO DAILY@1700 Aspirin 325 mg PO DAILY@1700 Discharge Medication List PARoxetine HCL [Paxil] 10 mg PO DAILY@1700 08/08/18 [History] Lisinopril [Zestril] 20 mg PO DAILY@1700 11/10/18 [History] amLODIPine BESYLATE [Norvasc] 10 mg PO DAILY@1700 11/10/18 [History] Aspirin 325 mg PO DAILY@1700 11/13/19 [History] Follow up Appointment(s)/Referral(s): Edward Givens MD [Primary Care Provider] - 11/22/19 8:00 am (With Brittny) Patient Instructions/Handouts: Chest Pain (DC)
== END 2019-11-14 15:05 ==
LOC: EC 11:23 → 1SOBS 15:16
PROVIDERS: ADMIT Hospitalist; ATTEND Hospitalist
DX: R07.89 Other chest pain (principal); I10 Essential (primary) hypertension; H54.7 Unspecified visual loss; D75.1 Secondary polycythemia; F17.210 Nicotine dependence, cigarettes, uncomplicated; Z86.79 Personal history of other diseases of the circulatory system; D18.02 Hemangioma of intracranial structures; Q28.3 Other malformations of cerebral vessels; R51 Headache; E66.01 Morbid (severe) obesity due to excess calories; Z68.41 Body mass index [BMI] 40.0-44.9, adult; K58.9 Irritable bowel syndrome, unspecified; I83.90 Asymptomatic varicose veins of unspecified lower extremity; F41.9 Anxiety disorder, unspecified; C96.6 Unifocal Langerhans-cell histiocytosis; K44.9 Diaphragmatic hernia without obstruction or gangrene; R20.0 Anesthesia of skin; F32.9 Major depressive disorder, single episode, unspecified; Z79.82 Long term (current) use of aspirin; Z79.899 Other long term (current) drug therapy; Z86.14 Personal history of Methicillin resistant Staphylococcus aureus infection; Z82.49 Family history of ischemic heart disease and other diseases of the circulatory system; Z80.8 Family history of malignant neoplasm of other organs or systems; Z88.1 Allergy status to other antibiotic agents; Z91.012 Allergy to eggs; Z88.8 Allergy status to other drugs, medicaments and biological substances; Z90.49 Acquired absence of other specified parts of digestive tract
CPT/HCPCS: 93005 ×2; 96366; 96376 ×2; 96365; 99285; 36415; 93351; 85379; 83880; 80061; 80053; 83735; 84484 ×2; 85025; 85049; 85610; 85730 ×2; 71046; 70496; 70450; G0378 ×2; S4990; J1644 ×2; Q9967

== ENCOUNTER 2023-09-28 10:00 | Emergency (ER) | payer OTHER ==
[2023-09-28] MEDS ORDERED: ACETAMINOPHEN TAB 500 MG TAB PO STA (10:55)
[2023-09-28] MEDS ORDERED: diazePAM 2 MG TAB PO STA (10:55)
--- NOTE | 2023-09-28 11:43 | XR ---
EXAMINATION TYPE: XR Hip RT and AP Pelvis DATE OF EXAM: 09/28/2023 COMPARISON: NONE HISTORY: Pain TECHNIQUE: A single AP view of the pelvis is obtained. Two views of the right hip are obtained. FINDINGS: There is no acute fracture/dislocation evident in the pelvis. Mild/moderate axial joint sp sebastián loss in both hips, right greater than left. Pubic symphysis is intact. Sacroiliac joints are jin ntained. Tubal ligation clips overlie the bilateral pelvis. Two views of right hip show no acute fracture or dislocation. No focal lytic or sclerotic lesion see n in the proximal right femur. Femoral head shape is maintained. The overlying soft tissue is unrema rkable. IMPRESSION: As above.
--- NOTE | 2023-09-28 12:45 | ED ---
General Adult HPI - General Chief complaint: Back Pain/Injury Stated complaint: Back Pain Time Seen by Provider: 09/28/23 10:26 Source: patient, RN notes reviewed, old records reviewed Mode of arrival: ambulatory Limitations: no limitations - History of Present Illness Initial comments: Patient is a 38-year-old female presents emergency Department after a muscle strain. Patient has a history of hypertension. 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 She tweaked it again while at work. Presents for further evaluation. Denies any saddle anesthesias, urinary bowel incontinence, lower extremity paralysis. Is able to ambulate although it is painful. States it fe els like her typical back strain or spasm which she has experienced in the past. Presents for further evaluation at this time. No other acute injuries. No falls. Is not on blood thinners. - Related Data Home Medications Medication Instructions Recorded Confirmed Aspirin 325 mg PO DAILY@1700 11/13/19 02/13/23 Omeprazole 40 mg PO DAILY 08/22/22 02/13/23 buPROPion [Wellbutrin] 5 mg PO DAILY 08/22/22 02/13/23 Desvenlafaxine Succinate 25 mg PO DAILY 02/13/23 02/13/23 [Desvenlafaxine Succinate ER] Sucralfate [Carafate] 1 gm PO BID 02/13/23 02/13/23 Valsartan 320 mg PO DAILY 02/13/23 02/13/23 carvediloL [Coreg] 6.25 mg PO BID 02/13/23 02/13/23 Previous Rx's Medication Instructions Recorded Cyclobenzaprine [Flexeril] 5 mg PO BID PRN 5 Days #10 tablet 09/28/23 Allergies Allergy/AdvReac Type Severity Reaction Status Date / Time egg Allergy Anaphylaxis Verified 09/28/23 10:18 sumatriptan [From Imitrex] Allergy Unknown Verified 09/28/23 10:18 tetracycline Allergy Dyspnea/Kraig Verified 09/28/23 10:18 sea Review of Systems ROS Statement: Those systems with pertinent positive or pertinent negative responses have been documented in the HPI. Review of Systems: CONST: Denies fever EYES: Denies blurry vision ENT: Denies nasal congestion C/V: Denies Chest pain RESP: Denies shortness of breath GI: Denies abdominal pain : Denies dysuria SKIN: Denies rash. MSK: Endorses back pain NEURO: Denies headache ROS Other: All systems not noted in ROS Statement are negative. 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 History of Any Multi-Drug Resistant Organisms: MRSA Date of last positivie culture/infection: 2010 MDRO Source:: throat Past Surgical History: Adenoidectomy, Cholecystectomy, Orthopedic Surgery, Tonsillectomy, Tubal Ligation Additional Past Surgical History / Comment(s): Benign eisinophilic granuloma skull surgery repair then I&D of this area, 2018-2 brain aneurysms with surgery at [facility], R lung biopsy d/t "spots"-found to be fungal, L knee arthroscopy. Past Anesthesia/Blood Transfusion Reactions: No Reported Reaction Past Psychological History: Anxiety, Depression Smoking Status: Former smoker Past Alcohol Use History: None Reported Past Drug Use History: None Reported - Past Family History Mother History Unknown: Yes Family Medical History: Eye Disorder, Hypertension Father History Unknown: Yes Family Medical History: Cancer, Hypertension, Renal Disease Additional Family Medical History / Comment(s): Father had cancerous brain eisinophilic granuloma. He from renal failure d/t medications at the age of 50 yrs. General Exam - General Exam Comments Initial Comments: General: Appears in mild distress. HEAD: Normal with no signs of head trauma. EYES: EOMI. ENT: Hearing grossly intact. RESPIRATORY: No respiratory distress. C/V: Regular rate and rhythm. ABD: Abdomen is nondistended. EXT: No obvious deformity. Tenderness to palpation around the right hip, as well as right paraspinal muscle tenderness as to palpation in the lower lumbar spine. No midline lumbar, thoracic tenderness to palpation. SKIN: No rashes or lesions observed on exposed skin. NEURO: Alert and oriented. Norvasc intact throughout. No focal deficits. Limitations: no limitations Course Vital Signs 09/28/23 09/28/23 10:15 12:42 Temperature 98 F 98.1 F Pulse Rate 71 74 Respiratory 18 16 Rate Blood Pressure 141/90 151/73 O2 Sat by Pulse 98 98 Oximetry Medical Decision Making - Medical Decision Making Was pt. sent in by a medical professional or institution (EVAN Krueger, PATTERN CLERK, urgent care, hospital, or care home...) When possible be specific @ -No Did you speak to anyone other than the patient for history (EMS, parent, family, police, friend...)? What history was obtained from this source @ -No Did you review nursing and triage notes (agree or disagree)? Why? @ -I reviewed and agree with nursing and triage notes Were old charts reviewed (outside hosp., previous admission, EMS record, old EKG, old radiological studies, urgent care reports/EKG's, care home records)? Report findings @ -No old charts were reviewed Differential Diagnosis (chest pain, altered mental status, abdominal pain women, abdominal pain men, vaginal bleeding, weakness, fever, dyspnea, syncope, headache, dizziness, GI bleed, back pain, seizure, CVA, palpatations, mental health, musculoskeletal)? @ -Differential Musculoskeletal Muscular strain, contusion, ligament sprain, fracture, arthritis, septic arthritis, bursitis, cellulitis, muscle spasm, nerve compression, DVT, arterial occlusion, herpes zoster, electrolyte abnormality, tumor.... This is not meant to be in all inclusive list EKG interpreted by me (3pts min.). @ -None done X-rays interpreted by me (1pt min.). @ -X-ray reveals no obvious acute injury. CT interpreted by me (1pt min.). @ -None done U/S interpreted by me (1pt. min.). @ -None done What testing was considered but not performed or refused? (CT, X-rays, U/S, labs)? Why? @ -None What meds were considered but not given or refused? Why? @ -None Did you discuss the management of the patient with other professionals (professionals i.e. EVAN Krueger, PATTERN CLERK, lab, RT, psych nurse, social insurance analyst, vacuum plastic forming machine operator, teacher, protection officer, clinical case manager)? Give summary @ -No Was smoking cessation discussed for >3mins.? @ -No Was critical care preformed (if so, how long)? @ -No Were there social determinants of health that impacted care today? How? (Homelessness, low income, unemployed, alcoholism, drug addiction, transportation, low edu. Level, literacy, decrease access to med. care, custodial, rehab)? @ -No Was there de-escalation of care discussed even if they declined (Discuss DNR or withdrawal of care, Hospice)? DNR status @ -No What co-morbidities impacted this encounter? (DM, HTN, Smoking, COPD, CAD, Cancer, CVA, ARF, Chemo, Hep., AIDS, mental health diagnosis, sleep apnea, morbid obesity)? @ -None Was patient admitted / discharged? Hospital course, mention meds given and route, prescriptions, significant lab abnormalities, going to OR and other pertinent info. @ -Patient presents with back pain, right hip pain. Atraumatic. Likely muscle spasm or strain. Over we will obtain pelvic x-ray with right hip x-ray and provide analgesia medications. Patient was in agreement this plan. Vital signs within acceptable limits. No red flag symptoms. No concern for cauda equina syndrome. X-ray unremarkable. On reevaluation, patient is feeling improved. She'll be discharged home at this time. She'll be given a work note. Diagnosis is muscle strain/spasm. I will provide the patient with a prescription for Flexeril. I instructed the patient to follow up with their PCP in the next 1-3 days. I explained that the patient should return to the emergency department if they experience any worsening symptoms. Strict return precautions were discussed with the patient. The patient expressed understanding of these instructions. I answered all questions that the patient had. The patient was discharged home in good condition with their prescriptions and follow up information. Undiagnosed new problem with uncertain prognosis? @ -No Drug Therapy requiring intensive monitoring for toxicity (Heparin, Nitro, Insulin, Cardizem)? @ -No Were any procedures done? @ -No Diagnosis/symptom? @ -Muscle strain, spasm Acute, or Chronic, or Acute on Chronic? @ -Acute Uncomplicated (without systemic symptoms) or Complicated (systemic symptoms)? @ -Uncomplicated Side effects of treatment? @ -No Exacerbation, Progression, or Severe Exacerbation? @ -No Poses a threat to life or bodily function? How? (Chest pain, USA, MS, pneumonia, PE, COPD, DKA, ARF, appy, cholecystitis, CVA, Diverticulitis, Homicidal, Suicidal, threat to staff... and all critical care pts) @ -No Disposition Clinical Impression: Muscle strain, Muscle spasm Disposition: HOME SELF-CARE Condition: Good Instructions (If sedation given, give patient instructions): Acute Low Back Pain (ED) Prescriptions: Cyclobenzaprine [Flexeril] 5 mg PO BID PRN 5 Days #10 tablet PRN Reason: Pain Is patient prescribed a controlled substance at d/c from ED?: No Referrals: Keyur Loera MD [Primary Care Provider] - 1-2 days Time of Disposition: 12:32
[2023-09-28 13:03] VITALS: BP 151/73; PULSE 74; RESP 16; TEMP 98.1
== END 2023-09-28 13:14 | disposition home or self-care (01) ==
LOC: EC 10:00
DX: S39.012A Strain of muscle, fascia and tendon of lower back, initial encounter (principal); I10 Essential (primary) hypertension; Z79.82 Long term (current) use of aspirin; Z79.899 Other long term (current) drug therapy; Z91.012 Allergy to eggs; Z88.8 Allergy status to other drugs, medicaments and biological substances; Z87.891 Personal history of nicotine dependence; Z90.49 Acquired absence of other specified parts of digestive tract; X58.XXXA Exposure to other specified factors, initial encounter
CPT/HCPCS: 73502; 99283

== ENCOUNTER 2023-12-20 14:22 | Emergency (ER) | payer OTHER ==
[2023-12-20 14:28] LABS: Glucose,Whole Blood 99 mg/dL (70-110)
[2023-12-20 14:39] VITALS: TEMP 98.1
--- NOTE | 2023-12-20 14:43 | ED ---
General Adult HPI - General Chief complaint: Neuro Symptoms/Deficit Stated complaint: Chest pain, facial numbness Time Seen by Provider: 12/20/23 14:35 Source: patient, family, RN notes reviewed, old records reviewed Mode of arrival: wheelchair Limitations: no limitations - History of Present Illness Initial comments: This is a 38-year-old female stating that while she was at work she became nauseous and vomited x 1. Patient states after that she had decreased sensation on both sides of her face but she is still able to feel touch. Patient states she also had some left arm weakness and left leg weakness. Patient was able to ambulate however patient's speech was not slurred but very slow but accurate. Patient denies any chest pain patient denies any palpitations patient has any shortness of breath or difficulty breathing. Patient has any visual disturbance. - Related Data Home Medications Medication Instructions Recorded Confirmed Omeprazole 40 mg PO DAILY 08/22/22 12/20/23 Sucralfate [Carafate] 1 gm PO BID 02/13/23 12/20/23 ALPRAZolam [Xanax] 0.25 mg PO BID PRN 12/20/23 12/20/23 Albuterol Inhaler [Ventolin Hfa 2 puff INHALATION RT-Q4H PRN 12/20/23 12/20/23 Inhaler] Aspirin EC [Ecotrin Low Dose] 81 mg PO DAILY 12/20/23 12/20/23 Atorvastatin [Lipitor] 40 mg PO DAILY 12/20/23 12/20/23 Butalb/APAP/Caff 50-325-40Mg 1 tab PO Q6H PRN 12/20/23 12/20/23 [Fioricet 50-325-40] Cholecalciferol [Vitamin D3 (125 125 mcg PO DAILY 12/20/23 12/20/23 Mcg = 5000 Iu)] DULoxetine HCL [Cymbalta] 60 mg PO DAILY 12/20/23 12/20/23 Isosorbide Mononitrate ER [Imdur] 30 mg PO DAILY 12/20/23 12/20/23 Losartan/Hydrochlorothiazide 1 tab PO DAILY 12/20/23 12/20/23 [Losartan-Hctz 100-12.5 mg Tab] Magnesium Oxide [Magox 400] 400 mg PO HS 12/20/23 12/20/23 dilTIAZem HCL [dilTIAZem HCL 24Hr 240 mg PO DAILY 12/20/23 12/20/23 ER (CD)] Allergies Allergy/AdvReac Type Severity Reaction Status Date / Time doxycycline Allergy Anaphylaxis Verified 12/20/23 15:50 egg Allergy Anaphylaxis Verified 12/20/23 15:50 sumatriptan [From Imitrex] Allergy Anaphylaxis Verified 12/20/23 15:50 tetracycline Allergy Dyspnea/Kraig Verified 12/20/23 15:50 sea Review of Systems ROS Statement: Those systems with pertinent positive or pertinent negative responses have been documented in the HPI. ROS Other: All systems not noted in ROS Statement are negative. 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 History of Any Multi-Drug Resistant Organisms: MRSA Date of last positivie culture/infection: 2010 MDRO Source:: throat Past Surgical History: Adenoidectomy, Cholecystectomy, Orthopedic Surgery, Tonsillectomy, Tubal Ligation Additional Past Surgical History / Comment(s): Benign eisinophilic granuloma skull surgery repair then I&D of this area, 2018-2 brain aneurysms with surgery at [facility], lung biopsy d/t "spots"-found to be fungal, L knee arthroscopy. Past Anesthesia/Blood Transfusion Reactions: No Reported Reaction Past Psychological History: Anxiety, Depression Smoking Status: Former smoker Past Alcohol Use History: None Reported Past Drug Use History: None Reported - Past Family History Mother History Unknown: Yes Family Medical History: Eye Disorder, Hypertension Father History Unknown: Yes Family Medical History: Cancer, Hypertension, Renal Disease Additional Family Medical History / Comment(s): Father had cancerous brain eisinophilic granuloma. He from renal failure d/t medications at the age of 50 yrs. General Exam - General Exam Comments Initial Comments: GENERAL: Patient is well-developed and well-nourished. Patient is nontoxic and well- hydrated and is in mild distress. ENT: Neck is soft and supple. No significant lymphadenopathy is noted. Oropharynx is clear. Moist mucous membranes. Neck has full range of motion without eliciting any pain. EYES: The sclera were anicteric and conjunctiva were pink and moist. Extraocular movements were intact and pupils were equal round and reactive to light. Eyelids were unremarkable. PULMONARY: Unlabored respirations. Good breath sounds bilaterally. No audible rales rhonchi or wheezing was noted. CARDIOVASCULAR: There is a regular rate and rhythm without any murmurs gallops or rubs. ABDOMEN: Soft and nontender with normal bowel sounds. No palpable organomegaly was noted. There is no palpable pulsatile mass. SKIN: Skin is clear with no lesions or rashes and otherwise unremarkable. NEUROLOGIC: Patient is alert and oriented x3. Cranial nerves II through XII are grossly intact. I did not appreciate any facial droop patient had 3 out of 5 strength in the left hand and 3 out of 5 strength in plantar and dorsiflexion of the left foot though the exam was inconsistent at times it seemed like she had good strength and at other times it was weaker. Patient's speech was slow but not slurred and she articulated words well but slowly. Symmetrical smile. Finger- nose testing was normal bilaterally MUSCULOSKELETAL: Normal extremities with adequate strength and full range of motion. No lower extremity swelling or edema. No calf tenderness. LYMPHATICS: No significant lymphadenopathy is noted PSYCHIATRIC: Normal psychiatric evaluation. Limitations: no limitations Course Vital Signs 12/20/23 12/20/23 12/20/23 14:23 14:45 15:37 Temperature 98.1 F Pulse Rate 81 79 72 Respiratory 18 16 18 Rate Blood Pressure 139/95 121/80 127/79 O2 Sat by Pulse 99 97 97 Oximetry 12/20/23 15:52 Temperature Pulse Rate 75 Respiratory 18 Rate Blood Pressure 128/82 O2 Sat by Pulse 97 Oximetry Medical Decision Making - Medical Decision Making EKG is interpreted by myself but EKG shows a sinus rhythm at 70 bpm MA interval 192 QRS is 117 QT interval is 412 QTc is 446. Patient's EKG shows no ST segment ovation or depression Was pt. sent in by a medical professional or institution (, PA, PRECINCT POLICE SERGEANT, urgent care, hospital, or correction...) When possible be specific @ -No Did you speak to anyone other than the patient for history (EMS, parent, family, police, friend...)? What history was obtained from this source @ -No Did you review nursing and triage notes (agree or disagree)? Why? @ -I reviewed and agree with nursing and triage notes Were old charts reviewed (outside hosp., previous admission, EMS record, old EKG, old radiological studies, urgent care reports/EKG's, correction records)? Report findings @ -No old charts were reviewed Differential Diagnosis (chest pain, altered mental status, abdominal pain women, abdominal pain men, vaginal bleeding, weakness, fever, dyspnea, syncope, headache, dizziness, GI bleed, back pain, seizure, CVA, palpatations, mental health, musculoskeletal)? @ -Differential CVA Ischemic stroke, hemorrhagic stroke, brain tumor, atypical migraine, Wernicke's encephalopathy, seizure, multiple sclerosis, meningitis, encephalitis, hypoglycemia, Guillain-Dodd, electrolytes disturbance, myasthenia gravis.... This is not meant to be an all-inclusive list EKG interpreted by me (3pts min.). @ -As above X-rays interpreted by me (1pt min.). @ -Chest x-ray shows no acute abnormality CT interpreted by me (1pt min.). @ -CT of the brain shows no acute abnormality. CT angiogram shows no acute normality U/S interpreted by me (1pt. min.). @ -None done What testing was considered but not performed or refused? (CT, X-rays, U/S, labs)? Why? @ -None What meds were considered but not given or refused? Why? @ -None Did you discuss the management of the patient with other professionals (professionals i.e. , PA, PRECINCT POLICE SERGEANT, lab, RT, psych nurse, social professionals, injection molder, teacher, school services officer, case packer)? Give summary @ -I spoke with the neuro interventionalists Dr. Trotter he wanted the patient admitted. Was smoking cessation discussed for >3mins.? @ -No Was critical care preformed (if so, how long)? @ -No Were there social determinants of health that impacted care today? How? (Homelessness, low income, unemployed, alcoholism, drug addiction, transportation, low edu. Level, literacy, decrease access to med. care, penitentiary, rehab)? @ -No Was there de-escalation of care discussed even if they declined (Discuss DNR or withdrawal of care, Hospice)? DNR status @ -No What co-morbidities impacted this encounter? (DM, HTN, Smoking, COPD, CAD, Cancer, CVA, ARF, Chemo, Hep., AIDS, mental health diagnosis, sleep apnea, morbid obesity)? @ -None Was patient admitted / discharged? Hospital course, mention meds given and route,Prescriptions, significant lab abnormalities, going to OR and other pertinent info. @ -I went back in and gave the patient her results I told her she was going to be admitted to neurology with seizure she seemed to be fine with that at the time but later in the evening she signed out AMA and told the nurse that she wants to go to another hospital get second opinion. At that time patient was walking and using all 4 extremities and did not appear to have any deficit at all her speech was clear she had no facial droop. Undiagnosed new problem with uncertain prognosis? @ -No Drug Therapy requiring intensive monitoring for toxicity (Heparin, Nitro, Insulin, Cardizem)? @ -No Were any procedures done? @ -No Diagnosis/symptom? @ -CVA Acute, or Chronic, or Acute on Chronic? @ -Acute Uncomplicated (without systemic symptoms) or Complicated (systemic symptoms)? @ -Complicated Side effects of treatment? @ -No Exacerbation, Progression, or Severe Exacerbation? @ -No Poses a threat to life or bodily function? How? (Chest pain, USA, SC, pneumonia, PE, COPD, DKA, ARF, appy, cholecystitis, CVA, Diverticulitis, Homicidal, Suicidal, threat to staff... and all critical care pts) @ -Yes this could lead to a more serious stroke and possible - Lab Data Result diagrams: 12/20/23 15:05 Lab Results 12/20/23 12/20/23 12/20/23 Range/Units 14:25 15:05 15:05 WBC 8.6 (3.8-10.6) k/uL RBC 5.98 H (3.80-5.40) m/uL Hgb 18.2 H (11.4-16.0) gm/dL Hct 54.1 H (34.0-46.0) % MCV 90.5 (80.0-100.0) fL MCH 30.4 (25.0-35.0) pg MCHC 33.6 (31.0-37.0) g/dL RDW 14.1 (11.5-15.5) % Plt Count 214 (150-450) k/uL MPV 8.8 Neutrophils % 69 % Lymphocytes % 22 % Monocytes % 4 % Eosinophils % 1 % Basophils % 1 % Neutrophils # 6.0 (1.3-7.7) k/uL Lymphocytes # 1.9 (1.0-4.8) k/uL Monocytes # 0.4 (0-1.0) k/uL Eosinophils # 0.1 (0-0.7) k/uL Basophils # 0.1 (0-0.2) k/uL PT 11.8 (10.0-12.5) sec INR 1.1 (<1.2) APTT 29.5 (22.0-30.0) sec POC Glucose (mg/dL) 99 (70-110) mg/dL POC Glu Informatics Scientist ID [place] Disposition Clinical Impression: Cerebrovascular accident (CVA) Disposition: LEFT AGAINST MEDICAL ADVICE Referrals: None,Stated [Primary Care Provider] - 1-2 days Time of Disposition: 17:27
--- NOTE | 2023-12-20 15:00 | CT ---
EXAMINATION TYPE: CT brain wo con DATE OF EXAM: 12/20/2023 COMPARISON: 11/13/2019 INDICATION: Left arm and facial numbness. DLP: 1091.6 mGycm, Automated exposure control for dose reduction was used. CONTRAST: None CT of the brain is performed utilizing 3 mm thick sections through the posterior fossa and 3 mm thick sections through the remaining calvarium. Study is performed within 24 hours of arrival to the hosp ital. No abnormal hyperdensity is present to suggest an acute intracranial hemorrhage. No mass lesion is evident. No acute infarcts are evident. Ventricles and sulci are appropriate for the patient age. This been a prior craniotomy at the left posterior parietal-occipital region, present previously. Paranasal sinuses and mastoid air cells within the [id number] are clear. IMPRESSION: 1. No acute intracranial process.
--- NOTE | 2023-12-20 15:21 | XR ---
EXAMINATION TYPE: XR chest 2V DATE OF EXAM: 12/20/2023 COMPARISON: 11/13/2019 HISTORY: Chest pain TECHNIQUE: Frontal and lateral views of the chest are obtained. FINDINGS: Increased perihilar density could reflect developing infiltrate or bronchitis. Correlate clinically. No evidence for pneumothorax. No pleural effusion. The cardiac silhouette size is within normal limits. The osseous structures are grossly intact. IMPRESSION: 1. Increased perihilar density could reflect developing infiltrate or bronchitis. Correlate clinical ly.
[2023-12-20 15:29] LABS: Basophils # (A) 0.1 k/uL (0-0.2); Basophils % (A) 1 %; Eosinophils # (A) 0.1 k/uL (0-0.7); Eosinophils % (A) 1 %; HCT 54.1 % (34.0-46.0); HGB 18.2 gm/dL (11.4-16.0); Lymphocytes # (A) 1.9 k/uL (1.0-4.8); Lymphocytes % (A) 22 %; MCH 30.4 pg (25.0-35.0); MCHC 33.6 g/dL (31.0-37.0); MCV 90.5 fL (80.0-100.0); Mean Platelet Volume 8.8; Monocytes # (A) 0.4 k/uL (0-1.0); Monocytes % (A) 4 %; Neutrophils % (A) 69 %; Platelet Count 214 k/uL (150-450); RBC 5.98 m/uL (3.80-5.40); RDW 14.1 % (11.5-15.5); WBC 8.6 k/uL (3.8-10.6)
[2023-12-20] MEDS: SODIUM CHLORIDE 0.9% 500 ML 500 ML IV STA (15:33)
--- NOTE | 2023-12-20 15:38 | CT ---
EXAMINATION TYPE: CT angio head neck DATE OF EXAM: 12/20/2023 HISTORY: Left arm and facial numbness. COMPARISON: None CT DLP: 695.6 mGycm. Automated Exposure Control for Dose Reduction was Utilized. TECHNIQUE: CTA scan of the neck is performed with IV Contrast, patient injected with 65ml mL of Isov ue 370, axial images are obtained, coronal and sagittal reformatted images are reviewed. Three-D afua nstructed images are created on an independent workstation and reviewed. Source images are reviewed. FINDINGS: Carotid/Vascular Structures: There is a 3 vessel arch. Common carotid arteries bifurcate into internal and external carotid arteries without significant mark w limiting stenosis. There is tortuosity of the bilateral internal carotid arteries. Vertebral arteries are codominant. Internal carotid arteries and vertebral arteries are patent to the skull base. Cervical of [place]: Vertebral basilar system appears normal. Posterior cerebral vasculature is unrema rkable. Internal carotid arteries bifurcate normally into A1 and M1 segments. A2 segments are normal. The anterior communicating artery is patent. The right posterior communicating artery is patent. The left posterior communicating artery is patent. Other: There is a 0.8 cm nodule left apex. IMPRESSION: 1. No flow-limiting stenosis bilateral carotid bifurcations. Internal carotid arteries are very tortu ous. 2. Normal [place] of [place] NASCET criteria was used in interpretation of this exam?
[2023-12-20 15:58] LABS: INR 1.1 (<1.2); Partial Thromboplastin Time 29.5 sec (22.0-30.0); Prothrombin Time 11.8 sec (10.0-12.5)
[2023-12-20 16:01] VITALS: BP 128/82; PULSE 75; RESP 18
[2023-12-20 17:53] LABS: ALT 8 U/L (4-34); AST 18 U/L (14-36); African American GFR (CKD) >90 (>60 ml/min/1.73 sqM); Albumin 4.3 g/dL (3.5-5.0); Alkaline Phosphatase 139 U/L (38-126); Anion Gap 9 mmol/L; Blood Urea Nitrogen 14 mg/dL (7-17); Calcium 9.4 mg/dL (8.4-10.2); Carbon Dioxide 26 mmol/L (22-30); Chloride 100 mmol/L (98-107); Creatine Kinase 51 U/L (30-135); Glucose 92 mg/dL (74-99); Non-African American GFR(CKD) >90 (>60 ml/min/1.73 sqM); Potassium 3.4 mmol/L (3.5-5.1); Sodium 135 mmol/L (137-145); Total Bilirubin 0.7 mg/dL (0.2-1.3); Total Protein 7.7 g/dL (6.3-8.2)
== END 2023-12-20 17:32 | disposition left against medical advice (07) ==
LOC: EC 14:22
DX: I63.9 Cerebral infarction, unspecified (principal); Z87.891 Personal history of nicotine dependence; Z91.012 Allergy to eggs; Z88.8 Allergy status to other drugs, medicaments and biological substances
CPT/HCPCS: 36415; 93005; 80053; 82550; 84484; 85025; 85610; 85730; 71046; 70496; 70450; 70498; 99285; Q9967

== ENCOUNTER 2024-04-16 20:50 | Inpatient (IN) | payer BC ==
[~2024-04-16 20:50] MED LIST: SODIUM CHLORIDE 0.9% 1,000 ML BAG ONE; T.ENECTEPLASE 5 MG/ML VIAL IVP ONE
[2024-04-17] MEDS ORDERED: POTASSIUM CHLORIDE ER 20 MEQ TAB.ER PO ONE ×2 (05:17→05:18)
[2024-04-17] MEDS ORDERED: MAGNESIUM SULFATE-D5W PMX 200 ML IVPB ONE (05:18)
[2024-04-17] MEDS ORDERED: DULoxetine HCL 60 MG CAPSULE.DR PO ONE (09:46)
[2024-04-17] MEDS ORDERED: PANTOPRAZOLE 40 MG TABLET PO ONE (12:48)
[2024-04-17] MEDS ORDERED: ATORVASTATIN 80 MG TAB ONE (21:10)
[2024-04-17] MEDS ORDERED: CLOPIDOGREL 75 MG TAB ONE (23:24)
[2024-04-17] MEDS ORDERED: ASPIRIN 81 MG ONE (23:24)
[2024-04-17] MEDS ORDERED: SODIUM CHLORIDE 0.9% 1,000 ML BAG ONE (23:59)
[2024-04-18] MEDS ORDERED: POTASSIUM CHLORIDE ER 20 MEQ TAB.ER PO ONE (05:06)
[2024-04-18] MEDS ORDERED: PANTOPRAZOLE 40 MG TABLET PO ONE (08:00)
[2024-04-18] MEDS ORDERED: DULoxetine HCL 60 MG CAPSULE.DR PO ONE (08:01)
[2024-04-18] MEDS ORDERED: CLOPIDOGREL 75 MG TAB ONE (08:01)
[2024-04-18] MEDS ORDERED: ASPIRIN 81 MG ONE (08:01)
[2024-04-18] MEDS ORDERED: ATORVASTATIN 80 MG TAB ONE (08:02)
--- NOTE | 2024-05-14 20:52 | CT ---
EXAM: CT Head Without Intravenous Contrast CLINICAL HISTORY: ams, neuro deficit TECHNIQUE: Axial computed tomography images of the head/brain without intravenous contrast. CTDI is 22.4 mGy and DLP is 600.8 mGy-cm. This CT exam was performed using one or more of the following dose reduction techniques: automated exposure control, adjustment of the mA and/or kV according to patient size, and/or use of iterative reconstruction technique. COMPARISON: None. FINDINGS: Brain:No mass effect or acute infarct. No acute hemorrhage. No abnormal density in the brain parenchyma. Ventricles:No hydrocephalus or midline shift. Bones/joints: Previous left temporal craniotomy. No skull fracture. Soft tissues:No scalp hematoma. Visualized Sinuses:Clear. Mastoid air cells:No mastoid effusion. IMPRESSION: 1. Previous left temporal craniotomy. 2. No acute intracranial abnormality. EXAM: CT Angiography Head With Intravenous Contrast CLINICAL HISTORY: ams, neuro deficit TECHNIQUE: Axial computed tomographic angiography images of the head with intravenous contrast. CTDI is 22.4 mGy and DLP is 600.8 mGy-cm. This CT exam was performed using one or more of the following dose reduction techniques: automated exposure control, adjustment of the mA and/or kV according to patient size, and/or use of iterative reconstruction technique. MIP reconstructed images were created and reviewed. 65 mL Isovue 370 given IV. COMPARISON: Head CT done earlier. FINDINGS: Right internal carotid artery: Patent. Right anterior cerebral artery: Patent. Right middle cerebral artery: Patent. Right posterior cerebral artery: Patent. Right vertebral artery: Patent. Left internal carotid artery: Patent. Left anterior cerebral artery: Patent. Left middle cerebral artery: Patent. Left posterior cerebral artery: Patent. Left vertebral artery: Patent. Basilar artery: Patent. Other: IMPRESSION: 1. No aneurysm or large vessel occlusion. EXAM: CT Angiography Neck With Intravenous Contrast CLINICAL HISTORY: ams, neuro deficit TECHNIQUE: Routine carotid CT angiography protocol was performed with intravenous contrast. NASCET criteria using the distal ICAs for comparison were used for evaluation of stenoses. CTDI is 22.4 mGy and DLP is 600.8 mGy-cm. This CT exam was performed using one or more of the following dose reduction techniques: automated exposure control, adjustment of the mA and/or kV according to patient size, and/or use of iterative reconstruction technique. MIP reconstructed images were created and reviewed. 65 mL Isovue 370 given IV. Mild motion artifact. COMPARISON: None. FINDINGS: Right common carotid artery: Patent. Right internal carotid artery: Patent. Right vertebral artery: Patent. Right dominant system. Left common carotid artery: Patent. Left internal carotid artery: Patent. Left vertebral artery: Patent. Other: IMPRESSION: 1. No dissection, occlusion, or significant stenosis. CAROTID STENOSIS REFERENCE USING NASCET CRITERIA: %ICA stenosis = (1 - narrowest ICA diameter/diameter of distal cervical ICA) x 100. Mild - <50%stenosis. Moderate - 50-69%stenosis. Severe - 70-94%stenosis. Near occlusion - 95-99%stenosis. Occluded - 100%stenosis. Radiologist: Fabienne Tilley M.D. Electronically Signed: 04/16/24 23:23 Study ready at 23:12 and initial results transmitted at 23:23 [facility]
--- NOTE | 2024-05-17 09:02 | CT ---
EXAM: CT Head Without Intravenous Contrast CLINICAL HISTORY: ams, neuro deficit TECHNIQUE: Axial computed tomography images of the head/brain without intravenous contrast. CTDI is 22.4 mGy and DLP is 600.8 mGy-cm. This CT exam was performed using one or more of the following dose reduction techniques: automated exposure control, adjustment of the mA and/or kV according to patient size, and/or use of iterative reconstruction technique. COMPARISON: None. FINDINGS: Brain:No mass effect or acute infarct. No acute hemorrhage. No abnormal density in the brain parenchyma. Ventricles:No hydrocephalus or midline shift. Bones/joints: Previous left temporal craniotomy. No skull fracture. Soft tissues:No scalp hematoma. Visualized Sinuses:Clear. Mastoid air cells:No mastoid effusion. IMPRESSION: 1. Previous left temporal craniotomy. 2. No acute intracranial abnormality. MTDD
--- NOTE | 2024-06-03 09:40 | XR ---
Patient Yue Cook ID [id number] Order # EXAMINATION TYPE: XR chest 1V DATE OF EXAM: 04/28/2024 COMPARISON: No comparison available on downtime PACS. INDICATION: Follow-up TECHNIQUE: Single frontal view of the chest is obtained. FINDINGS: The heart size is normal. The pulmonary vasculature is normal. The lungs are clear. IMPRESSION: 1. No acute pulmonary process.
== END 2024-04-18 14:00 | disposition left against medical advice (07) | DRG 62 ==
LOC: 2SICU 20:50 → MERGE 20:50
PROVIDERS: ADMIT Hospitalist; ATTEND Hospitalist
DX: I63.89 Other cerebral infarction (principal); G81.94 Hemiplegia, unspecified affecting left nondominant side; I10 Essential (primary) hypertension; F32.A Depression, unspecified; K21.9 Gastro-esophageal reflux disease without esophagitis; E66.9 Obesity, unspecified; F41.9 Anxiety disorder, unspecified; R29.810 Facial weakness; R29.716 NIHSS score 16; F17.210 Nicotine dependence, cigarettes, uncomplicated; Z79.899 Other long term (current) drug therapy; Z79.82 Long term (current) use of aspirin
CPT/HCPCS: 70450; 70496; 70498; 71045; 80048; 80053; 80061; 80320; 82140; 83036; 83735; 84100; 84484; 85025; 85027; 85610; 85730; 93005; 93306; 96361; 96374; 99285